=== PATIENT | female | born 2005 | race Caucasian/White ===

== ENCOUNTER 2025-04-23 07:13 | Outpatient (OUT) | payer BC, SELFPAY ==
--- OUTSIDE RECORDS SUMMARY | 2025-04-22 10:00 | XMS_ITS ---
Author Organization The [facility] in [place] Address [address] [place] [address] Care Team Providers Care Mission Coordinator Name Role Phone Stanislav Hall Primary Care Provider Allergies No Known Allergies REASON FOR VISIT light headed and dizzy, random sharp left sided chest pain Social History Tobacco Use: Social History Observation Description Date Details (start date - stop date) Never Smoker NA - NA Tobacco Use/Smoking Question Answer Notes Patient is a nonsmoker Vital Signs Weight 191.6 lbs 04/22/2025 Height 64 in 04/22/2025 Blood pressure systolic 142 mm Hg 04/22/20 25 Blood pressure diastolic 90 mm Hg 025 BMI 32.88 kg/m2 04/22/2025 BMI Percentile 96.1 % 04/22/2025 Procedures Procedure Date Ordered Date Performed Result Body Sit e EKG w Interp & Report - performed 04/22/2025 N/ACARDIO Hgfpvyxaxtteqi26/06/2025N/AHolter Monitor - 3 days up to 14 days 04/22/2025N/A Encounters Encounter Location Date Provider Diagnosis [facility] [address] [place] [address] 04/22/2025 Stanislav Hall Chest pain R07.9 and Near syncope R55 Assessments Encounter Date Diagnosis (ICD Code) Assessment Notes Treatment Notes Treatment Clinical Notes Section Notes 04/22/2025 Chest pain (ICD-10 - R07.9) been goiing on for a month04/22/2025Near syncope (ICD-10 - R55) Plan Of Treatment Treatment Notes Assessment Notes Chest pain been goiing on for a month Pending Test Test Name Order Date EKG w Interp & Report - performed 2024 CARDIO Echocardiogram 04/22/2025 High Sensitivity Troponin 04/22/2025 BNP 04/22/2025 CPK 04/22/2025 SED RATE WESTERGREN 04/22/2025 THYROID PANEL (T4/TSH/FREE T3) Holter Monitor - 3 days up to 14 days CMP (COMP MET MENCHACA) w/eGFR CKD-EPI 2024 CBC WITH DIFF 04/22/2025 Procedure Notes * CategorySub-CategoryDetailNotesEKG w/InterpInterpretation:Normal ecg - Progress Notes * Macarena TAVERAS RDOB: [birth year] (19 yo F)Acc No.[id number]:04/22/2025 UNLOCKED PROGRESS NOTE Progress Note Patient: Macarena BLANK :?Pawel Hall ([facility]), MDDOB:2005???Age: 19 Y???Sex:FemaleDate:04/22/2025Phone:[phone]:[id number] [place], [id number] In:02:54 PM ESTCheck Out:03:41 PM EST Subjective: * Chief Complaints: * 1 . Light headed and dizzy, random sharp left sided chest pain. * HPI: ???General:? Bth spinning adn feels like going to pass out - off balance does get chest pain at time - no palitations - sharp pain. * ROS: ???EENT:?hearing changes?denies.?visual changes?denies. non-healing mouth sores?denies.?swollen glands or neck lumps?denies.?hoarseness?denies.?sore throat?denies.?difficulty swallowing?denies.?nose bleeds?denies.?nasal congestion?denies.?ear ache?denies.?ear discharge denies.?ringing in ears?denies.?light sensitivity?denies.?eye pain?denies.?blurring?denies.?eye irritation?denies.?double vision?denies. vision loss?denies.?General/Constitutional:?Sweats:?Denies.?Fatigue?denies.?Sleep proble ms?denies.?Anorexia?denies.?Malaise?denies.?Weight loss?denies. Fatigue or Weakness?denies.?Fever or Chills?denies.?Cardiovascular:?Shortness of Breath w/lying flat?denies.?Lightheadedne ss/dizziness?denies.?Chest tightness/ heavy pressure?denies.?Swelling of legs, a nkles, or feet?denies.?Waking up with shortness of breath?denies.?Chest pain&#16 0;denies.?Palpitations?denies.?Weight gain?denies.?Respiratory:?Chronic or frequent cough?denies.?Coughing up blood&#1 60;denies.?Difficulty breathing?denies.?Productive cough?denies.?Snoring&#1 60;denies.?Shortness of breath that awakens from sleep (PND)?denies.?Chest pain? denies.?Sputum production?denies.?Wheezing?denies.?Musculoskeletal:?Joint pain?denies.?Joint Fluid?denies.?Backpain?denies.?Knee pain?denies.?Neck pain?denies.?Joint Stiffness?denies.?Muscle cramps?denies.?Weakness of muscles?denies.?Arthritis?denies.?Muscle aches?denies.?Pain in shoulder(s)?denies.?Swollen joints?denies.? * Medical History: D epression. * Surgical History: D enies Past Surgical History. * Hospitalization/Major Diagno stic Procedure: D enies Past Hospitalization. * Family History: F ather: alive. M other: alive. B rother(s): alive. 2 brother(s) . . * Social History: ???Tobacco Use:?Tobacco Use/Smoking?Patient is a?nonsmoker * Medications: D iscontinued Bactrim DS(Sulfamethoxazole-Trimethoprim) 800-160 MG Tablet 1 tablet Orally BID , Discontinued Cefdinir 300 MG Capsule 2 capsule Orally once a day , Discontinued Cipro(Ciprofloxacin HCl) 500 MG Tablet 1 tablet Orally BID , Discontinued Doxycycline Monohydrate 100 MG Capsule 1 capsule Orally bid , Medication List reviewed and reconciled with the patient * Allergies: N .K.D.A. Objective: * Vitals: W t:191.6lbs, Ht: 64 in, BP:142/90mm Hg, BMI:32.88Index, Ht-cm: 162.56 cm, Wt-k.91 kg, Wt %: 96.5 %, BMI %: 96.1 %, Ht %: 45.4 %. * Examination: ???Physical Exam: ?GENERAL:?well developed, well nourished, in no acute distress.?HEAD:?normocephalic/atraumatic.?EYES:?pupils equal, round and reactive to light, conjunctivae and sclerae normal.?EARS:?no deformity or lesion of external ear, canals and TM appear normal bilaterally, TM's intact, not inflamed with normal light reflex, hearing grossly normal to conversational speech.?NOSE:?no deformity, discharge, inflammation, or lesions. ?MOUTH:?mucous membranes moist, normal oropharynx and posterior pharynx without lesions or exudates, tongue normal, dentition normal.?NECK:?neck supple, no masses or palpable cervical nodes, trachea midline, thyroid without nodules, masses, tenderness, or enlargement.?CHEST:?no chest wall deformity, no chest wall tenderness. ?LUNGS:?normal respiratory effort and clear to auscultation, no wheezes, rales, or rhonchi, good air exchange.?CARDIO:?regular rate and rhythm, normal S1 and S2, nor murmur, rub, or gallop.?PULSES:?normal capillary refill.?ABDOMEN:?soft, non-distended, non-tender, no masses.?MUSCULOSKELETAL:?no deformity or scoliosis noted, normal range of motion, joints normal, no erythema, edema, effusion, or ecchymosis.?EXTREMITY:?no clubbing, cyanosis, edema, or deformity withnormal ROM in both upper and lower bilateral extremities.?NEUROLOGIC:?grossly normal.?SKIN:?no rashes, ulcerations, or suspicious lesions.?LYMPH NODES:?no cervical adenopathy, nodes normal.?MENTAL STATUS:?alert and oriented x3, normal mood and affect.? Assessment: * Assessment: 1.?Chest pain - R07.9 (Primary)???2.?Near syncope - R55??? Plan: * Treatment: ?LAB: High Sensitivity Troponin ?LAB: BNP ?LAB: CPK ?LAB: SED RATE WESTERGREN ?LAB: THYROID PANEL (T4/TSH/FREE T3) ?LAB: CMP (COMP MET MENCHACA) w/eGFR CKD-EPI ?LAB: CBC WITH DIFF ?Procedure: EKG w Interp & Report - performed ?Procedure: CARDIO Echocardiogram ?Procedure: Holter Monitor - 3 days up to 14 days* 7 days Notes: been goiing on for a month??2.?Near syncope?LAB: THYROID PANEL (T4/TSH/FREE T3) ?LAB: CMP (COMP MET MENCHACA) w/eGFR CKD-EPI ?LAB: CBC WITH DIFF * Procedures: ???EKG w/Interp:?Interpretation: ?Normal ecg -?.? * Procedure Codes: 9 3000 EKG, UVALDO. * Preventive Medicine: ??Screenings/Counseling:?BMI ACTION PLAN?Above Normal BMI Follow-up?Dietary management education, guidance, and counseling * * Electronic signature of Stanislav Hall MD, [id number] on 04/23/2025 at 07:21 AM EST Sign off status: PendingVisit Status:?CHK (Check Out) * Provider: Tera Hall ([facility])MD Date: 1 06/22/2024 Generated for Printing/Faxing/eTransmitting on:?04/23/2025 07:21 AM EST History and Physical Notes * HPI (History of Present Illness) CategorySub-CategoryDetailNotesCategory NotesGeneral Bth spinning adn feels like going to pass out - off balance does get chest pain at time - no palitations - sharp pain Examination CategorySub-CategoryDetailNotesCategory NotesPhysical ExamGENERAL:well developed, well nourished, in no acute distressHEAD:normocephalic/atraumatic EYES:pupils equal, round and reactive to light, conjunctivae and sclerae normal EARS:no deformity or lesion of external ear, canals and TM appear normal bilaterally, TM's intact, not inflamed with normal light reflex, hearing grossly normal to conversational speechNOSE:no deformity, discharge, inflammation, or lesionsMOUTH:mucous membranes moist, normal oropharynx and posterior pharynx without lesions or exudates, tonguenormal, dentition normalNECK:neck supple, no masses or palpable cervical nodes, trachea midline, thyroid without nodules, masses, tenderness, or enlargementCHEST:no chest wall deformity, no chest wall tendernessLUNGS:normal respiratory effort and clear to auscultation, no wheezes, rales, or rhonchi, good air exchangeCARDIO:regular rate and rhythm, normal S1 and S2, nor murmur, rub, or gallopPULSES:normal capillary refillABDOMEN:soft, non-distended, non-tender, no massesRECTAL:MUSCULOSKELETAL:no deformity or scoliosis noted, normal range of motion, joints normal, no erythema, edema, effusion, or ecchymosisEXTREMITY:no clubbing, cyanosis, edema, or deformity with normal ROM in both upper and lower bilateral extremitiesNEUROLOGIC:grossly normalSKIN:no rashes, ulcerations, or suspicious lesionsLYMPH NODES:no cervical adenopathy, nodes normalMENTAL STATUS:alert and oriented x3, normal mood and affect
--- OUTSIDE RECORDS SUMMARY | 2025-04-23 07:21 | XMS_ITS | Patient Health Record ---
Author Organization The [facility] in [place] Address [address] [place] [address] Care Team Providers Care Plasma Cutting Machine Operator Name Role Phone Isabel Stanislav Primary Care Provider [phone] Allergies No Known Allergies Reason For Referral Diagnosis 1 Hidradenitis axillar is (L73.2) Referral Organization [facility] Referring Provider First Name Stanislav Referring Provider Last Name Isabel Referring Provider Speciality Family Med re Referred Provider Nader [facility] Referred Provider Specialty General Surg delon Referral Priority Routine Immunizations Vaccine Route Administration Date Status Comme nts MenQuadfi 0.5mL Single Dose Vial IM Intramuscular 02/27/2023 Administered Social History Tobacco Use: Social History Observation Description Date Details (start date - stop date) Never Smoker NA - NA Tobacco Use/Smoking Question Answer Notes Patient is a nonsmoker Alcohol Screen (Audit-C) Question Answer Notes Did you have a drink containing alcohol in the p ast year? No Xvrotn8GndudpgdwdacozPygxfpal Problems Problem Type SNOMED Code ICD Code Onset Dates Problem Status W/U Status Risk Notes Problem Hidradenitis axillaris (01838450) Hidrade nitis axillaris (L73.2) Activeconfirmed Vital Signs Blood pressure diastolic 90 mm Hg 04/22/2025 Gpouzv70 in04/22/2025MI Mkvbbwunqi24.1 %04/22/2025lood pressure szdzhavv016 mm Hg04/22/20251413Rnxjoz478.6 lbs106/22/2024BMI32.88 kg/m204/22/2025 Procedures Procedure Date Ordered Date Performed Result Body Sit e EKG w Interp & Report - performed 04/22/2025 N/AHolter Monitor - 3 days up to 14 days04/22/2025N/ACARDIO Echocardiogram 04/22/2025N/A Encounters Encounter Location Date Provider Diagnosis [facility] [address] [place] [address] 05/28/2024 Stanislav Hoy Hidradenitis axillar is L73.2 [facility] [address] [place] [address] 04/22/2025 Stanislav Hoy Chest pain R07.9 and Near syncope R55 [facility] [address] [place] [address] 06/08/2024 Stanislav Hoy Hidradenitis axillar is L73.2 [facility] [address] [place] [address] 06/08/2024 Stanislav Hoy Assessments Encounter Date Diagnosis (ICD Code) Assessment Notes Treatment Notes Treatment Clinical Notes Section Notes 05/28/2024 Hidradenitis axillaris (ICD-10 - L73.2) 04/22/2025hest pain (ICD-10 - R07.9)been goiing on for a month04/22/2025Near syncope (ICD-10 - R55)06/08/2024Hidradenitis axillaris (ICD-10 - L73.2) Plan Of Treatment Pending Test Test Name Order Date EKG w Interp & Report - performed 2024 CARDIO Echocardiogram 04/22/2025 High Sensitivity Troponin 04/22/2025 BNP 04/22/2025 CPK 04/22/2025 SED RATE WESTERGREN 04/22/2025 THYROID PANEL (T4/TSH/FREE T3) Holter Monitor - 3 days up to 14 days CMP (COMP MET MENCHACA) w/eGFR CKD-EPI 2024 CBC WITH DIFF 04/22/2025 Insurance Providers Payer Name Payer Address Payer Phone Subscriber Number Group Number Insured Name Patient Relationship to Insured Coverage Start Date Coverage End Date [employer]THEM ACCESS PPO PLUS LOCAL PLAN [address] [place] [address] [id number] Reese Alcantar Child - Insured does not have Financial Responsibility (includes legally adopted child)2023 Medical (General) History Medical History History ICD Code Depression F32.A
--- OUTSIDE RECORDS SUMMARY | 2025-04-23 07:21 | XMS_ITS | Patient Health Record ---
Author Organization [facility] Address [address] [place] [address] Care Team Providers Care Hand Ii Cutter Name Role Phone NO PCP Primary Care Provider Unavailabl e Reason For Referral No Information Medications Medication SIG (Take, Route, Frequency, Duration) Notes Start Date End Date Status Gnyahcrmr-Ftjmzamd-DB 30-2-10 MG/5ML 7.5 ml orally 4 times a day as needed for congestion and cough; Duration: 4 days 11/30/2018ActiveAmoxicillin 875 MG1 tab(s) orally every 12 hours; Duration: 7 day(s)11/30/2018Active Plan Of Treatment No Information Insurance Providers Payer Name Payer Address Payer Phone Subscriber Number Group Number Insured Name Patient Relationship to Insured Coverage Start Date Coverage End Date [facility] [facility] [address] [place] [address] [id number] LORETO ALCANTAR Child - Insured has Financial Responsibility Medical (General) History Hospitalization History Reason Date(Month/Year) influenza age 11
--- OUTSIDE RECORDS SUMMARY | 2025-04-23 07:21 | XMS_ITS | Patient Health Record ---
Author Organization [facility] Address [address] [place] [address] Care Team Providers Care Active Directory Engineer Name Role Phone Pawel Hall Primary Care Provider Unavailabl e Allergies No Known Allergies Reason For Referral No Information Immunizations Vaccine Route Administration Date Status Comme nts z2023 Fluzone, 6mo & older, Quad PFS (0.5mL Admin) Unknown 06/18/2023 Refused Problems No Known Problems Plan Of Treatment No Information Insurance Providers Payer Name Payer Address Payer Phone Subscriber Number Group Number Insured Name Patient Relationship to Insured Coverage Start Date Coverage End Date [employer] [facility] [address] [place] [address] [id number] Olga DELACRUZ Child - Insured has Financial Responsibility Medical (General) History Medical History History ICD Code No known health problems Z78.9
--- OUTSIDE RECORDS SUMMARY | 2025-04-23 07:22 | XMS_ITS | Patient Health Record ---
Author Organization [facility] es Address [address] [place] [address] Care Team Providers Care Bagger And Stock Handler Helper Name Role Phone George Alvaradoa Primary Care Provider Reason For Referral No Information Plan Of Treatment No Information Insurance Providers Payer Name Payer Address Payer Phone Subscriber Number Group Number Insured Name Patient Relationship to Insured Coverage Start Date Coverage End Date ANTHEM Primary [address] [place] [phone] [id number] CHIOMA TAVERAS Self - patient is the insured 3
[2025-04-23 07:53] LABS: Hematocrit 41.6 % (36.0-48.0); Hemoglobin 13.7 g/dL (12.0-16.0); Immature Granulocytes Abs Auto 0.01 10^3/uL (0.00-0.03); Immature Granulocytes Pct Auto 0.2 % (0.0-0.5); Lymphocytes Absolute Auto 2.8 10^3/uL (1.2-3.8); Mean Corpuscular HGB Conc 32.9 g/dL (29.9-35.2); Mean Corpuscular Hemoglobin 29.8 pg (26.7-34.0); Mean Corpuscular Volume 90.6 fL (81.0-99.0); Platelet Count 307 10^3/uL (150-450); Red Blood Count 4.59 10^6/uL (4.20-5.40); White Blood Count 5.1 10^3/uL (4.0-11.0)
[2025-04-23 08:34] LABS: Alanine Aminotransferase 16 U/L (14-59); Albumin Globulin Ratio 1.2; Albumin Level 4.0 g/dL (3.4-5.0); Alkaline Phosphatase 50 U/L (46-116); Anion Gap 14.6; Aspartate Amino Transferase 14 U/L (15-37); Blood Urea Nitrogen 5.0 mg/dL (6.4-19.3); Calcium 9.2 mg/dL (8.5-10.1); Carbon Dioxide 25.3 mmol/L (21.0-32.0); Chloride 106 mmol/L (98-107); Creatine Kinase 116 U/L (26-192); Estimated GFR (African America >60 (>=60 mL/min/1.73m^2); Estimated GFR (Non-African Ame >60 (>=60 mL/min/1.73m^2); Free T3 3.28 pg/mL (2.91-4.70); Globulin 3.4 g/dL; Glucose 98 mg/dL (74-106); NT Pro B Type Natriuretic Pept 26.0 pg/mL (<=450.0); Potassium 3.9 mmol/L (3.5-5.1); Sodium 142 mmol/L (136-145); Thyroid Stimulating Hormone 2.038 uIU/mL (0.516-4.130); Total Protein 7.4 g/dL (6.4-8.2)
== END 2025-04-23 07:14 | disposition home or self-care (01) ==
LOC: LAB 07:18
PROVIDERS: PCP Family Medicine; Visit Provider Family Medicine
DX: R07.9 Chest pain, unspecified (principal); R55 Syncope and collapse
CPT/HCPCS: 36415; 80053; 82550; 83880; 84436; 84443; 84481; 84484; 85025; 85652

== ENCOUNTER 2025-05-03 08:54 | Outpatient (OUT) | payer BC, SELFPAY ==
--- NOTE | 2025-05-03 09:00 | CA_ITS ---
Patient Name: CHIOMA TAVERAS MR#: [id number] : 2005 Exam Date: 05/03/2025 Ordering Doctor: DR DIANE NIÑO . ECHOCARDIOGRAM REPORT PROCEDURE: CA ECHO DOPPLER COMPLETE INDICATIONS: Chest pain COMPARISON: None. DESCRIPTION: COMPLETE ECHOCARDIOGRAM Real-time transthoracic echocardiography with 2D, M-mode, spectral and color flow Doppler performed. QUALITY: Technical quality was good. LEFT VENTRICLE: Normal chamber size. Normal left ventricle wall thickness. Normal left ventricle systolic function without wall motion abnormalities. Calculated left ventricular ejection fraction is 62%. LV EF: Normal left ventricular ejection fraction, (>55%). DIASTOLIC: Normal diastolic function. ATRIAL SEPTUM: Visually appears intact. LEFT ATRIUM: Normal chamber size. RIGHT ATRIUM: Normal chamber size. RIGHT VENTRICLE: Normal chamber size. Normal right ventricular systolic function. TRICUSPID VALVE: Normal mobility and thickness. No stenosis with trivial regurgitation. No evidence of pulmonary hypertension. RVSP 30 mmHg MITRAL VALVE: Normal mobility and thickness. No evidence of mitral valve stenosis. There is no mitral annular calcification. No mitral regurgitation. AORTIC VALVE: Normal trileaflet appearance. No visible sclerosis. Normal leaflet mobility. No evidence of aortic valve stenosis. No aortic regurgitation. AORTIC ROOT: Normal diameter and appearance. Ascending aorta is normal in size. PULMONIC VALVE: Normal thickness and mobility. No stenosis. Trivial regurgitation. PERICARDIUM: No evidence of pericardial effusion. IVC: Normal size, Collapes with inspirations. PLEURA: CONCLUSION: Normal left ventricle size, wall thickness, and systolic function without wall motion abnormalities, ejection fraction 62% Normal left ventricular diastolic function Normal right ventricular size and systolic function Normal right-sided pressure, RVSP 30 mmHg No significant valvular abnormalities Adult Echocardiography Procedure Report Left Ventricle LVEDD (3.7 - 5.6 cm): 4.54 cm LVESD (2.2 - 4.0 cm): 3.24 cm LVIVS thickness (0.6 - 1.2 cm): 1.11 cm LVPW thickness (0.5 - 1.0 cm): 0.64 cm e': 0.19 m/s E - e': 4.06 LVOT Max Gradient: 2.86 mm[Hg] LVOT Area (cm2): 0.85 m/s Peak Velocity (LVOT): 0.85 m/s Mean Velocity (LVOT): 0.60 m/s LVOT Diameter 1.93 cm Left Ventricular Ejection Fraction: 62.50 % Left Atrium LA Volume Index (2D A2C): 16.42 ml/m2 Left Atrium Systolic Dimension: 3.09 cm Mitral Valve MV E to A Ratio: 1.25 MV Max Gradient: MV Mean Gradient: Mitral Valve A-Wave Peak Velocity: 0.63 m/s Mitral Valve E-Wave Peak Velocity: 0.79 m/s Cardiovascular Orifice Area: Right Ventricle RV Internal Diastolic Dimension: Aorta AO Root Diam: 3.00 cm Ascending Ao Diam: 2.91 cm Aortic Valve AoV Area (Peak Asim): 2.49 cm2, 2.49 cm2 AoV Area (VTI): 2.42 cm2, 2.42 cm2 Deceleration Bradford: Pressure Half-Time: Peak Velocity(Antegrade Flow): 0.99 m/s Peak Gradient(Antegrade Flow): 3.95 mm[Hg] Mean Velocity(Antegrade Flow): 0.67 m/s Mean Gradient(Antegrade Flow): 2.06 mm[Hg] Velocity Time Integral: 18.97 cm Tricuspid Valve Peak Velocity (Regurgitant Flow): 2.61 m/s Peak Velocity: Pulmonic Valve Mean Gradient: 1.84 mm[Hg] Mean Velocity: 0.62 m/s Peak Velocity: 0.97 m/s, 0.95 m/s Peak Gradient: 3.64 mm[Hg], 3.75 mm[Hg] Right Atrium Right Atrium Systolic Pressure: 35.11 ml, 35.11 ml Dictated by: Pasha Simms MD on 05/03/2025 at 18:01 Approved by: Pasha Simms MD on 05/03/2025 at 18:11
== END 2025-05-03 08:55 | disposition home or self-care (01) ==
LOC: CARD 08:54
PROVIDERS: PCP Family Medicine; Visit Provider Family Medicine
DX: R07.9 Chest pain, unspecified (principal)
CPT/HCPCS: 93246; 93306